=== PATIENT | female | born 1950 | race Caucasian/White ===

== ENCOUNTER → 2016-07-27 | Outpatient (CLI) | payer MEDICARE, OTHER ==
[~2016-07-27] MED LIST: ALPR2TAB2 PO; ASPI-999 PO; CATHETER FLUSH 10 ML SYR IV PRN; CELEXA; CHOL40002 PO; CYAN100T PO; DICL75TA2 PO; DOCU100C37 PO; ETHINYL ESTRADIOL; HYDR-3816 PO; IBUP-1773 PO; IOHEXOL 350 MG/ML 100 ML (OMNIPAQUE 350) VIAL IV ONE; LACT1CAP64 PO; MAG1CAPS4 PO; MULT-974 PO; NF-ESOM40C; NITR0.4T3 SL; NORETHINDRONE; NS 100 ML (IVPB) BAG IV ONE; OMG1KC PO; PNT40TEC PO; SIME80TA16 PO; VARE0.5T PO; VITA1CAP59 PO
--- NOTE | 2016-07-27 10:41 | Diagnostic Imaging Report ---
PROCEDURE: CT abdomen and pelvis with contrast. TECHNIQUE: Multiple contiguous axial images were obtained through the abdomen and pelvis after administration of intravenous contrast. INDICATION: Reflux, history of diverticulitis. The tech node says this is a followup from a CT performed on April 17; however, I have no record of that exams performance on [facility]. FINDINGS: There are no findings of recurrent or residual diverticulitis. There is no abscess, hematoma, or other fluid collection. There is no pneumatosis or free air. There is no evidence for a bowel obstruction. There is distortion of the stomach at the EG junction, presumed wrap from Stephen fundoplication. The stomach was not pathologically dilated. The gallbladder is surgically absent. There is no pathological biliary dilatation. The pancreas is normal. The nonfocal spleen is within normal limits. There is no adrenal mass. Simple right renal cortical cysts are noted. There is no hydronephrosis. There is no mesenteric or retroperitoneal lymphadenopathy. There is no aneurysm, adenopathy, or mass. The lung bases and the osseous structures are nonacute. IMPRESSION: Apparent prior Stephen fundoplication. Previous cholecystectomy. No evidence of biliary dilatation. No bowel, biliary, or urinary tract obstruction. No evidence for diverticulitis. No inflammatory process or acute abnormalities. Dictated by: Dictated on workstation # [id number]
== END ==
LOC: RAD 08:47
PROVIDERS: ATTEND Nurse Practitioner Family
DX: K21.9 Gastro-esophageal reflux disease without esophagitis (principal); Z90.49 Acquired absence of other specified parts of digestive tract; Z98.890 Other specified postprocedural states
CPT/HCPCS: 74177

== ENCOUNTER → 2016-12-30 | Outpatient (CLI) | payer MEDICARE, OTHER ==
[~2016-12-30] MED LIST changes: -CATHETER FLUSH 10 ML SYR IV PRN; -IOHEXOL 350 MG/ML 100 ML (OMNIPAQUE 350) VIAL IV ONE; -NS 100 ML (IVPB) BAG IV ONE
--- NOTE | 2016-12-31 09:07 | Diagnostic Imaging Report ---
Bilateral screening mammogram 2D views with tomosynthesis The current study was also evaluated with a Computer Aided Detection (CAD) system. Indication: Screening. No current complaints stated on the questionnaire. COMPARISON: 11/09/13. FINDINGS: The breasts are composed of scattered fibroglandular densities. There are scattered benign-appearing calcifications seen. Allowing for technique and positional differences, no suspicious change is seen. IMPRESSION: No significant change. ACR BI-RADS Category 2: Benign findings. Result letter will be mailed to the patient. Note: At least 10% of breast cancer is not imaged by mammography. Dictated by: Dictated on workstation # [id number]
== END ==
LOC: RAD 10:02
PROVIDERS: ATTEND Nurse Practitioner Family
DX: Z12.31 Encounter for screening mammogram for malignant neoplasm of breast (principal)
CPT/HCPCS: 77067

== ENCOUNTER → 2020-04-30 | Outpatient (CLI) | payer MEDICARE, OTHER ==
[~2020-04-30] VITALS: Ht 157 cm; Wt 77.0 kg
[~2020-04-30] MED LIST changes: +BAMLANIVIMAB (NON FORM) 700 MG in NS (IVPB) 250 ML IV ONE; +EPINEPHrine INJECTION 1 MG/ML AMP IM PRN; +HYDR-34 PO; -HYDR-3816 PO; -MAG1CAPS4 PO; +MAGNESIUM-VIT1 EACH PO; -NITR0.4T3 SL; +NITR0.4T42 SL; +diphenhydrAMINE 50 MG/ML INJ (BENADRYL) IV PRN
[2020-04-30 08:02] VITALS: BP 123/75
[2020-04-30 10:17] VITALS: BP 125/77
== END ==
LOC: INFUSION 07:59
PROVIDERS: ATTEND Nurse Practitioner Family
DX: U07.1 COVID-19 (principal)